=== PATIENT | female | born 2000 | race Caucasian/White ===

== ENCOUNTER → 2023-12-18 | Outpatient (CLI) | payer MEDICAID, SELFPAY ==
[2023-12-22 00:07] LABS: Chlamydia By Nucleic Acid AMP Negative (Negative); Gonococcus By Nucleic Acid AMP Negative (Negative)
[2023-12-22 15:10] LABS: HPV Reflexed? NOT INDICATED
== END | disposition home or self-care (01) ==
PROVIDERS: PCP Family Medicine; Referring Provider Registered Nurse; Visit Provider Registered Nurse
DX: Z12.4 Encounter for screening for malignant neoplasm of cervix (principal); O99.210 Obesity complicating pregnancy, unspecified trimester; Z3A.00 Weeks of gestation of pregnancy not specified
CPT/HCPCS: 87491; 87591; 88175; G0145

== ENCOUNTER → 2024-01-19 | Outpatient (CLI) | payer MEDICAID, SELFPAY ==
[2024-01-19 16:38] LABS: Absolute Lymphocyte Count 1.98 X10^3/uL (0.83-4.51); Absolute Neutrophil Count 7.7 X10^3/uL (2.0-7.7); Basophil# 0.04 X10^3/uL; Basophil% 0.4 % (0-1); Eosinophil# 0.09 X10^3/uL; Eosinophils% 0.8 % (0-5); Hematocrit 41.3 % (37-47); Hemoglobin 13.8 g/dL (12.0-15.0); Lymphocyte # 1.98 X10^3/ul (0.83-4.51); Lymphocyte % 18.7 % (19-41); Mean Corp Hgb Conc 33.4 g/dL (32-36); Mean Corpuscular Hgb 28.8 pg (27.0-32.0); Mean Platelet Vol. 10.7 fl (6.2-12.0); Monocyte# 0.76 X10^3/uL; Monocyte% 7.2 % (0-10); NRBC Flagged by Analyzer 0 % (0-5); Neutrophil # 7.69 X10^3/uL (2.7-7.7); Neutrophil % 72.4 % (47-70); Platelet Count 251 K/mm3 (150-450); RBC Distribution Width CV 12.3 % (11.6-14.6); RBC Distribution Width SD 38.7 fl (35.1-43.9); White Blood Count 10.6 K/mm3 (4.4-11.0)
[2024-01-19 17:07] LABS: Hemoglobin A1c 4.9 % (3.8-5.6)
[2024-01-19 17:10] LABS: ALB/GLOB Ratio 0.8 RATIO (0.9-2.4); AST(SGOT) 19 U/L (15-37); Alanine Aminotransfer ALT/SGPT 49 U/L (13-56); Albumin, Serum 3.2 g/dL (3.2-5.0); Alkaline Phosphatase 57 U/L (45-117); Anion Gap 9 (5-15); BUN 8 mg/dL (7-18); BUN/Creat Ratio 11.2 RATIO (10-20); Calcium,Total 9.5 mg/dL (8.5-10.1); Chloride 106 mmol/L (98-107); Creatinine, Serum 0.72 mg/dL (0.55-1.02); EST Glomerular Filtration Rate 105 mL/min (>60); Est Glom Filt Rate - Afr Amer 128 mL/min (>60); Globulin 3.9 g/dL (2.2-4.2); Glucose 91 mg/dL (74-106); Potassium 3.9 mmol/L (3.5-5.1); Protein, Total 7.1 g/dL (6.4-8.2); Sodium Level 140 mmol/L (136-145)
[2024-01-19 17:53] LABS: HIV - WCH Non-Reactive (Nonreactive); Hepatitis B Surface Antigen Non-Reactive (Nonreactive); Hepatitis C Antibody Non-Reactive (Nonreactive); Rubella IgG Reactive (Nonreactive); Syphilis Antibodies Non-reactive
== END | disposition home or self-care (01) ==
LOC: WOBLAB 16:05
PROVIDERS: Registered Nurse; PCP Family Medicine; Referring Provider Nurse Practitioner Women's Health; Visit Provider Nurse Practitioner Women's Health
DX: O99.210 Obesity complicating pregnancy, unspecified trimester (principal); E66.01 Morbid (severe) obesity due to excess calories; Z87.59 Personal history of other complications of pregnancy, childbirth and the puerperium; Z3A.00 Weeks of gestation of pregnancy not specified
CPT/HCPCS: 36415; 80053; 83036; 85025; 86703; 86762; 86780; 86803; 86850; 86900; 86901; 87340

== ENCOUNTER → 2024-04-15 | Outpatient (CLI) | payer MEDICAID, SELFPAY ==
[2024-04-15 17:16] LABS: Absolute Lymphocyte Count 2.07 X10^3/uL (0.83-4.51); Absolute Neutrophil Count 7.8 X10^3/uL (2.0-7.7); Basophil# 0.02 X10^3/uL; Basophil% 0.2 % (0-1); Eosinophils% 0.9 % (0-5); Hematocrit 37.3 % (37-47); Hemoglobin 12.7 g/dL (12.0-15.0); Lymphocyte # 2.07 X10^3/ul (0.83-4.51); Lymphocyte % 19.5 % (19-41); Mean Corpuscular Hgb 29.6 pg (27.0-32.0); Mean Corpuscular Volume 86.9 fL (81-99); Mean Platelet Vol. 10.8 fl (6.2-12.0); Monocyte% 5.7 % (0-10); NRBC Flagged by Analyzer 0 % (0-5); Neutrophil # 7.75 X10^3/uL (2.7-7.7); Neutrophil % 73.1 % (47-70); Platelet Count 286 K/mm3 (150-450); RBC Distribution Width CV 12.7 % (11.6-14.6); RBC Distribution Width SD 40.2 fl (35.1-43.9); Red Blood Count 4.29 M/mm3 (4.2-5.4); White Blood Count 10.6 K/mm3 (4.4-11.0)
[2024-04-15 17:18] LABS: Glucose Challenge Gest 1H 50g 159 mg/dL (70-140)
[2024-04-15 17:54] LABS: HIV - WCH Non-Reactive (Nonreactive); Syphilis Antibodies Non-reactive
== END | disposition home or self-care (01) ==
LOC: BWCLAB 15:10
PROVIDERS: PCP Family Medicine; Referring Provider Advanced Practice Midwife; Visit Provider Advanced Practice Midwife
DX: O09.92 Supervision of high risk pregnancy, unspecified, second trimester (principal); Z13.1 Encounter for screening for diabetes mellitus; Z3A.00 Weeks of gestation of pregnancy not specified
CPT/HCPCS: 36415; 82950; 85025; 86703; 86780

== ENCOUNTER → 2024-04-22 | Outpatient (CLI) | payer MEDICAID, SELFPAY ==
[2024-04-22 07:49] LABS: Bedside Glucose 91 mg/dL (74-106)
[2024-04-22 08:12] LABS: Glucose GTT-Gestation. Fasting 95 mg/dL (<105)
[2024-04-22 08:54] LABS: Glucose GTT-Gestational 1 Hr 169 mg/dL (<190)
[2024-04-22 09:43] LABS: Glucose GTT-Gestational 2 Hr 122 mg/dL (<165)
[2024-04-22 11:11] LABS: Glucose GTT-Gestational 3 Hr 160 L (<145)
== END | disposition home or self-care (01) ==
LOC: LAB 07:13
PROVIDERS: PCP Family Medicine; Referring Provider Advanced Practice Midwife; Visit Provider Advanced Practice Midwife
DX: Z13.1 Encounter for screening for diabetes mellitus (principal)

== ENCOUNTER 2024-05-11 18:55 | Outpatient (CLI) | payer MEDICAID, SELFPAY ==
[2024-05-11] VITALS (43 sets, daily range): BP systolic 107–152; BP diastolic 53–70; PULSE 127–155; RESP 16–18; TEMP 38.1–38.2; O2SAT 86–100; BMI 42.3
--- NOTE | 2024-05-11 20:16 | OB.TRI.HP_ITS ---
HPI - General HPI Narrative KATELYN WALTON, is a 24 y/o @ 31 weeks 0 days who presents to L&D with back pain and contractions. She comes in on a wheel chair and appears to be in pain. She is tearful. She states that the pains started early this am and became progressively worse. She denies dysuria, no headaches or visual changes or epigastric pain. She does complain of nausea without vomiting. No fevers or chills. No loss of fluid, vaginal bleeding, or decreased movement. Maternal Data Information OLIMPIA Calculator Estimated Delivery Date Method Current WG Current Estimate 07/13/24 Ultrasound #1 31w 0d Other Estimates 07/27/24 LMP (Uncertain) 29w 0d PFSH PFSH Medical History Hx of vaginal delivery FH: congenital heart problem FH: breast cancer in relative when >45 years old Seasonal allergies Home Medications ?Medication ?Instructions ?Recorded ?Last Taken ?Type ondansetron 4 mg disintegrating 4 mg PO Q6H PRN nausea and 12/18/23 Unknown Rx tablet vomiting #30 tabs blood sugar diagnostic (Blood #120 ea 04/22/24 Unknown Rx Glucose Test strips) blood-glucose meter #1 ea 04/22/24 Unknown Rx lancets #200 ea 04/22/24 Unknown Rx Allergy/AdvReac Type Severity Reaction Status Date / Time No Known Allergies Allergy Verified 05/11/24 19:39 Family History Grandmother Breast cancer Paternal Mother Hypertension Social History adopted: No household members: significant other and children number of children: 1 current occupational status: unemployed current occupation: [employer] current occupational exposures/hazards: No pets and animals: Yes pets and animals: dog(s) sexually active: No Smoking Status: Never smoker alcohol intake: current alcohol intake frequency: holidays/special occasions only details: Not while substance use type: does not use well-balanced diet: daily or most days caffeine: No eating out: rarely or never during the past year weight has: remained stable what type of physical activity do you participate in: none anil/restoration: Denominational seatbelt use: always do you feel safe at home: Yes additional social history: BF- Maxim Dominguez- Self Employed Presser First History 2 Elective abortions Hx Para 1 Spontaneous abortions Hx # Term Pregnancies Ectopic pregnancies Hx # Pregnancies Multiple births # of living children 1 Past Pregnancies Del. Date Name GA/Weeks Outcome Route Bth Weight Infant Gen Labor Lgth Anesthesia Del Locatn Provider FOB 09/08/19 Cheryl 38 live - full term 7# Female elizabethu sarthak Pan Delivery Date: 09/08/19 Last Updated by: Margaux Bacon IOL Gestational HTN Visit Details Expected Delivery Route/Plan Labor Preferences- CB/BF classes: [] labor support person: [] labor intervention preferences: [] pain management options preferred: [] cut cord/dad catch: [] : [] PP control planned: [] discussed possible routes of delivery and associated risks: [] special requests: [] Plans Covid status: [] Flu vaccine: declined Tdap vaccine: [] Rhogam: [] LARC form signed: [] Problem list reviewed and updated with the most current plan of care details and appropriate orders placed. Relevant counseling for the gestational age provided. Continue routine care and follow up unless otherwise noted in visit notes/problem list details OB Flowsheet Initial Weight: 224 lb Date -?-?-?-?-?-?-?-?-?-?-?-?- EGA Weight BP Urine Prot -?-?-?-?-?-?-?-?-?-?-?-?- Glucose FHR FuHt Pres Dilation -?-?-?-?-?-?-?-?-?-?-?-?- Effaced St Visit Note 12/18/23 -?-?-?-?-?-?-?-?-?-?-?-?- 10w 2d 224 lb 2 oz (+2 oz) 134/86 -?-?--?-?-?-?-?-?-?-?-?-?- 180 -?-?-?-?-?-?-?-?-?-?-?-?- LC- 27.6mm CRL n ot cw LMP. OLIMPIA 07/13/2024. declines genetics. CMP for hx of PEC. 01/19/24 -?-?-?-?--?-?-?-?-?-?-?-?- 14w 6d 223 lb 4 oz (-12 oz) 136/82 Negative -?-?-?-?-?-?-?-?-?-?-?-?- Negative 163 -?-?-?-?-?-?-?-?-?-?-?-?- MH-No VB. Nausea resolved. Live IUP on br US to confirm FHT. Labs today 02/17/24 -?-?-?-?-?-?-?-?-?-?-?-?- 19w 0d 224 lb (+0 oz) 139/80 Negative -?-?-?-?-?-?-?-?-?-?-?-?- Negative 160 -?-?-?-?-?-?-?-?-?-?-?-?- SM- no vb crampi ng 03/18/24 -?-?-?-?-?-?-?-?-?-?-?-?- 23w 2d 228 lb 2 oz (+4 lb 2 oz) 132/77 Negative -?-?-?-?-?-?-?-?-?-?-?-?- Negative 150 24 -?-?-?-?-?-?-?-?-?-?-?-?- KW- no vb/lof/ct x. good fm. anatomy US reviewed-discussed NIPT- declines today. 28 week labs discussed. 04/15/24 -?-?-?-?-?-?-?-?-?-?-?-?- 27w 2d 229 lb 4 oz (+5 lb 4 oz) 136/89 Negative -?-?-?-?-?-?-?-?-?-?-?-?- Negative 145 28 -?-?-?-?-?-?-?-?-?-?-?-?- KW- no vb/lof/ct x. good fm. doing 28 week labs today. 04/29/24 -?-?-?-?-?-?-?-?-?-?-?-?- 29w 2d 231 lb (+7 lb) 135/84 Negative -?-?-?-?-?-?-?-?-?-?-?-?- Negative 145 29 -?-?-?-?-?-?-?-?-?-?-?-?- LC- fasting 2/4 elevated. multiple pp elevated. nutrition reviewed- has appt next week. if still elevated will need to start medication management. LC- fasting 2/4 elevated. mu ltiple pp elevated. nutrition reviewed- has appt next week. if still elevated will need to start medication management. f/u in 1 week 05/05/24 -?-?-?-?-?-?-?-?-?-?-?-?- 30w 1d 227 lb 8 oz (+3 lb 8 oz) 129/78 Negative -?-?-?-?-?-?-?-?-?-?-?-?- Negative 151 32 -?-?-?-?-?-?-?-?-?-?-?-?- JV- only one fas ting out of range. patient to see dietitian tomorrow. ROS Constitutional Constitutional: Reports systems reviewed and no addt'l complaints, except as documented Cardiovascular Cardiovascular: Denies chest pain, dyspnea or lightheadedness Gastrointestinal Gastrointestinal: Reports nausea; Denies bloating, constipation, diarrhea or vomiting Genitourinary Genitourinary: Reports other Details: Denies vaginal odor, vaginal bleeding, or vaginal discharge ; Denies difficulty urinating or flank pain Physical Exam Const alert, oriented x3 and no apparent distress General Appearance: cooperative and anxious HEENT normocephalic Resp normal respiratory effort and normal air movement Cardio Cardio Narrative: normal rhythm, tachycardic 150's no CVA tenderness Manual OB Exam: presentation cephalic, dilated 2, effaced 60 and station - 3 Extremity normal to inspection General Extremity: edema bilateral (trace ) NST FHR Rate Baby A Baseline: 150 Variability:: Moderate Accelerations:: 15 x 15 and 10 x 10 Decelerations:: None NST Reactive:: Yes FHR Category:: Category I Assessment & Plan (1) Threatened labor: (2) Gestational diabetes mellitus (GDM) affecting , antepartum: COMMENT: nutrition consult and testing 4 x daily (3) Abnormal glucose affecting : COMMENT: needs 3 hour (4) cardiac echogenic focus: COMMENT: declined NIPT (5) Obesity affecting : COMMENT: BMI 43.5, HgA1c with nob. encouraged healthy weight gain (6) History of pre-eclampsia in prior , currently : COMMENT: ASA after 10 weeks. baseline labs with nob (7) Supervision of high-risk : QUALIFIERS: Trimester: second trimester Qualified Code(s): O09.92 - Supervision of high risk , unspecified, second trimester COMMENT: PRR , OLIMPIA 07/20/24, PC Cheryl, BF Maxim (8) : QUALIFIERS: Weeks of gestation: 30 weeks Qualified Code(s): Z3A.30 - 30 weeks gestation of COMMENT: discussed ntd, genetic & carrier testing-declines (9) FH: congenital heart problem: COMMENT: Brother-hole in heart no intervention, start with anatomy scan and consider echo PLAN: Plan discussed plan with MFM: ROM plus + FFN collected upon arrival collect GBS start mag 6 gram bolus followed by 1 gram/hr for neuro protection. start pcn Give celestone 12.5 IM Give procardia 10 mg PO q 3 minutes x 3, hold for bp that is less than 90/60 ordering pre-e labs (CBC, CMP, LDH, urine prot:cr) Ordering urine culture flu+ covid+ rsv swab ordered. plan to transport to [facility] [place]. Charges/Coding Multi Select Codes Visit Charges Office Visit/Consults: 37188 OV L3 Est 20min Urinary/Genital Urinary/Genital CPT Codes: 44896-25 non-stress test Interp
[2024-05-11] MEDS: Ondansetron 4 MG/2 ML Vial IV (20:42)
[2024-05-11 20:46] LABS: ROM Internal Control Test YES-OK TO RESULT pt. (Internal QC); ROM Patient Test Negative (Negative); Record Kit Lot#, ROM+ K2451
[2024-05-11 20:46] LABS: Hemoglobin 13.1 g/dL (12.0-15.0); Mean Corp Hgb Conc 34.5 g/dL (32-36); Mean Corpuscular Hgb 29.8 pg (27.0-32.0); Mean Corpuscular Volume 86.4 fL (81-99); Platelet Count 225 K/mm3 (150-450); RBC Distribution Width CV 12.6 % (11.6-14.6); RBC Distribution Width SD 39.7 fl (35.1-43.9); White Blood Count 9.3 K/mm3 (4.4-11.0)
[2024-05-11] MEDS: Magnesium Sulfate 4gm/100mL 2 GM/50 ML IV.SOLN. IV (20:48)
[2024-05-11] MEDS: Lactated Ringers 500 ML 999 ML IV (20:48)
[2024-05-11] MEDS: Betamethasone/Betamethasone 30 MG/5 ML Vial 12 MG IM (20:49)
[2024-05-11] MEDS: Penicillin G Pot 5,000,000 UNITS in 0.9% Normal Saline (100mL MB+) 100 ML 150 UNITS IV (20:51)
[2024-05-11 20:54] LABS: Color, Urine Yellow (Yellow); Glucose, Dipstick Normal (Normal); Leukocyte Esterase-Dipstick 25 /ul (Negative); Nitrite-Dipstick Negative (Negative); Occult Blood-Urine 25 /ul (Negative); Protein-Dipstick 15 mg/dl (Negative); Urine Bilirubin Dipstick Negative (Negative); Urine Clarity Clear (Clear); Urine Urobilinogen Normal (Normal); Urine pH 6.5 (5.0 - 8.0)
[2024-05-11 20:57] LABS: Ketone-Dipstick 150 mg/dl (Negative)
[2024-05-11 20:58] LABS: Partial Thromboplast Time 27.2 Seconds (24.1-36.2); Prothrombin Time (Protime)PT. 13.3 SECONDS (11.7-14.9)
[2024-05-11 20:59] LABS: Fibrinogen 621 mg/dl (203-444)
[2024-05-11 21:01] LABS: AST(SGOT) 30 U/L (15-37); Alanine Aminotransfer ALT/SGPT 57 U/L (13-56); EST Glomerular Filtration Rate 129 mL/min (>60); Est Glom Filt Rate - Afr Amer 156 mL/min (>60); Estimated Creatinine Clearance 156.86 ml/min; Protein, Urine (Random) 19.5 mg/dL (<11.9); Protein:Creat Ratio 179 mg/g CRE (0-200); Uric Acid 4.7 mg/dL (2.6-6.0)
[2024-05-11 21:02] LABS: Fetal Fibronectin Negative; Record Kit Lot#, fFN D4035
[2024-05-11 21:04] LABS: LDH 144 U/L (84-246)
[2024-05-11] MEDS: Magnesium Sulfate 4gm/100mL 4 GM/100 ML IV.SOLN. IV (21:05)
[2024-05-11] MEDS: Magnesium Sulfate 20 GM/500 ML BAG IV (21:20)
== END 2024-05-11 22:15 | disposition home or self-care (01) ==
LOC: WPOUT 19:05 → WP 19:05
PROVIDERS: PCP Family Medicine; Referring Provider Obstetrics & Gynecology; Visit Provider Obstetrics & Gynecology
DX: O47.03 False labor before 37 completed weeks of gestation, third trimester (principal); Z3A.31 31 weeks gestation of pregnancy; O24.419 Gestational diabetes mellitus in pregnancy, unspecified control; O99.213 Obesity complicating pregnancy, third trimester
CPT/HCPCS: 96365; 96375; 96376; 36415; 59025; 59050; 81002; 82565; 82570; 82731; 83615; 84112; 84156; 84450; 84460; 84550; 85027; 85384; 85610; 85730; 87631; 96372; 99221; G0378; J0702; J2405

== ENCOUNTER → 2024-05-17 | Outpatient (CLI) | payer MEDICAID, SELFPAY ==
--- NOTE | 2024-05-17 09:26 | US_ITS ---
EXAM: US Abdomen Limited, Right Upper Quadrant CLINICAL INDICATION: TECHNIQUE: Real-time ultrasound of the right upper quadrant with image documentation. COMPARISON: No relevant prior studies available. FINDINGS: LIVER: Hepatopetal blood flow in main portal vein. Liver measures 14.67 mm. No intrahepatic bile duct dilation. GALLBLADDER: Unremarkable. No gallstones. COMMON BILE DUCT: Unremarkable as visualized. No stones. No dilation. PANCREAS: Unremarkable as visualized. RIGHT KIDNEY: Unremarkable. No stones. No hydronephrosis. The right kidney measures 10.3 x 4.8 x 5.2 cm. OTHER FINDINGS: Goblet sludge. US/Abdomen Limited IMPRESSION: Gallbladder sludge without acute cholecystitis. Reading [facility]
[2024-05-17 10:42] LABS: Absolute Lymphocyte Count 2.73 X10^3/uL (0.83-4.51); Basophil# 0.01 X10^3/uL; Basophil% 0.1 % (0-1); Eosinophil# 0.04 X10^3/uL; Eosinophils% 0.5 % (0-5); Hematocrit 37.2 % (37-47); Hemoglobin 12.5 g/dL (12.0-15.0); Lymphocyte # 2.73 X10^3/ul (0.83-4.51); Lymphocyte % 37.2 % (19-41); Mean Corp Hgb Conc 33.6 g/dL (32-36); Mean Corpuscular Hgb 29.1 pg (27.0-32.0); Mean Corpuscular Volume 86.7 fL (81-99); Mean Platelet Vol. 10.8 fl (6.2-12.0); Monocyte# 0.57 X10^3/uL; Monocyte% 7.8 % (0-10); NRBC Flagged by Analyzer 0 % (0-5); Neutrophil # 3.96 X10^3/uL (2.7-7.7); Platelet Count 225 K/mm3 (150-450); RBC Distribution Width CV 12.7 % (11.6-14.6); RBC Distribution Width SD 39.9 fl (35.1-43.9); Red Blood Count 4.29 M/mm3 (4.2-5.4); White Blood Count 7.3 K/mm3 (4.4-11.0)
[2024-05-17 11:00] LABS: ALB/GLOB Ratio 0.7 RATIO (0.9-2.4); AST(SGOT) 52 U/L (15-37); Alanine Aminotransfer ALT/SGPT 116 U/L (13-56); Albumin, Serum 2.7 g/dL (3.2-5.0); Alkaline Phosphatase 70 U/L (45-117); Anion Gap 9 (5-15); BUN 8 mg/dL (7-18); BUN/Creat Ratio 17.2 RATIO (10-20); Calcium,Total 8.7 mg/dL (8.5-10.1); Chloride 107 mmol/L (98-107); Creatinine, Serum 0.46 mg/dL (0.55-1.02); EST Glomerular Filtration Rate 174 mL/min (>60); Est Glom Filt Rate - Afr Amer 210 mL/min (>60); Glucose 79 mg/dL (74-106); Potassium 3.7 mmol/L (3.5-5.1); Protein, Total 6.7 g/dL (6.4-8.2); Sodium Level 137 mmol/L (136-145)
== END | disposition home or self-care (01) ==
LOC: US 09:22
PROVIDERS: PCP Family Medicine; Referring Provider Obstetrics & Gynecology; Visit Provider Obstetrics & Gynecology
DX: O09.299 Supervision of pregnancy with other poor reproductive or obstetric history, unspecified trimester (principal); R74.8 Abnormal levels of other serum enzymes; Z3A.00 Weeks of gestation of pregnancy not specified
CPT/HCPCS: 36415; 76705; 80053; 85025

== ENCOUNTER → 2024-05-26 | Outpatient (CLI) | payer MEDICAID, SELFPAY ==
[2024-05-26 17:25] LABS: ALB/GLOB Ratio 0.7 RATIO (0.9-2.4); AST(SGOT) 18 U/L (15-37); Alanine Aminotransfer ALT/SGPT 51 U/L (13-56); Albumin, Serum 2.8 g/dL (3.2-5.0); Alkaline Phosphatase 78 U/L (45-117); Anion Gap 7 (5-15); BUN 12 mg/dL (7-18); BUN/Creat Ratio 22.9 RATIO (10-20); Calcium,Total 9.5 mg/dL (8.5-10.1); Chloride 108 mmol/L (98-107); Creatinine, Serum 0.52 mg/dL (0.55-1.02); EST Glomerular Filtration Rate 151 mL/min (>60); Est Glom Filt Rate - Afr Amer 183 mL/min (>60); Glucose 114 mg/dL (74-106); Potassium 3.7 mmol/L (3.5-5.1); Protein, Total 6.8 g/dL (6.4-8.2); Sodium Level 138 mmol/L (136-145)
== END | disposition home or self-care (01) ==
LOC: BWCLAB 15:34
PROVIDERS: Obstetrics & Gynecology; PCP Family Medicine; Referring Provider Nurse Practitioner Women's Health; Visit Provider Nurse Practitioner Women's Health
DX: R79.89 Other specified abnormal findings of blood chemistry (principal)
CPT/HCPCS: 36415; 80053

== ENCOUNTER → 2024-06-10 | Outpatient (CLI) | payer MEDICAID, SELFPAY ==
[2024-06-10 17:03] LABS: ROM Internal Control Test YES-OK TO RESULT pt. (Internal QC); ROM Patient Test Negative (Negative); Record Kit Lot#, ROM+ K2871
== END | disposition home or self-care (01) ==
PROVIDERS: PCP Family Medicine; Visit Provider Advanced Practice Midwife
DX: N89.8 Other specified noninflammatory disorders of vagina (principal)
CPT/HCPCS: 84112

== ENCOUNTER 2024-06-11 02:24 | Outpatient (CLI) | payer MEDICAID, SELFPAY ==
[2024-06-11 02:48] VITALS: BMI 42.5
[2024-06-11 02:52] VITALS: RESP 16; TEMP 36.4
[2024-06-11 02:54] VITALS: BP 140/77; PULSE 86; O2SAT 97
[2024-06-11 03:01] VITALS: BP 127/71; PULSE 89
[2024-06-11 03:31] LABS: ROM Internal Control Test YES-OK TO RESULT pt. (Internal QC); ROM Patient Test Negative (Negative); Record Kit Lot#, ROM+ K2871
--- NOTE | 2024-06-11 08:27 | OB.TRI.HP_ITS ---
HPI - General HPI Narrative KATELYN WALTON, is a 24 F who presents at 35.3 for questionable leaking of fluid. good fm, no vb/ctx Maternal Data Information OLIMPIA Calculator Estimated Delivery Date Method Current WG Current Estimate 07/13/24 Ultrasound #1 35w 3d Other Estimates 07/27/24 LMP (Uncertain) 33w 3d PFSH PFSH Medical History Hx of vaginal delivery FH: congenital heart problem FH: breast cancer in relative when >45 years old Seasonal allergies Home Medications ?Medication ?Instructions ?Recorded ?Last Taken ?Type ondansetron 4 mg disintegrating 4 mg PO Q6H PRN nausea and 12/18/23 Unknown Rx tablet vomiting #30 tabs blood sugar diagnostic (Blood #120 ea 04/22/24 Unknown Rx Glucose Test strips) blood-glucose meter #1 ea 04/22/24 Unknown Rx lancets #200 ea 04/22/24 Unknown Rx Allergy/AdvReac Type Severity Reaction Status Date / Time No Known Allergies Allergy Verified 06/11/24 02:46 Family History Grandmother Breast cancer Paternal Mother Hypertension Social History adopted: No household members: significant other and children number of children: 1 current occupational status: unemployed current occupation: [employer] current occupational exposures/hazards: No pets and animals: Yes pets and animals: dog(s) sexually active: No Smoking Status: Never smoker alcohol intake: current alcohol intake frequency: holidays/special occasions only details: Not while substance use type: does not use well-balanced diet: daily or most days caffeine: No eating out: rarely or never during the past year weight has: remained stable what type of physical activity do you participate in: none anil/worship: Congregation seatbelt use: always do you feel safe at home: Yes additional social history: BF- Maxim Dominguez- Self Employed Technical Program Manager History 2 Elective abortions Hx Para 1 Spontaneous abortions Hx # Term Pregnancies Ectopic pregnancies Hx # Pregnancies Multiple births # of living children 1 Past Pregnancies Del. Date Name GA/Weeks Outcome Route Bth Weight Infant Gen Labor Lgth Anesthesia Del Locatn Provider FOB 09/08/19 Cheryl 38 live - full term 7# Female elizabethu sarthak Pan Delivery Date: 09/08/19 Last Updated by: Margaux Bacon IOL Gestational HTN Visit Details Expected Delivery Route/Plan Labor Preferences- CB/BF classes: [] labor support person: Maxim labor intervention preferences: [] pain management options preferred: epidural cut cord/dad catch: cord : yes PP control planned: discussed discussed possible routes of delivery and associated risks: [] special requests: [] Plans Covid status: [] Flu vaccine: declined Tdap vaccine: given Rhogam: na LARC form signed: yes Problem list reviewed and updated with the most current plan of care details and appropriate orders placed. Relevant counseling for the gestational age provided. Continue routine care and follow up unless otherwise noted in visit notes/problem list details OB Flowsheet Initial Weight: 224 lb Date -?-?-?-?-?-?-?-?-?-?-?-?- EGA Weight BP Urine Prot -?-?-?-?-?-?-?-?-?-?-?-?- Glucose FHR FuHt Pres Dilation -?-?-?-?-?-?-?-?-?-?-?-?- Effaced St Visit Note 12/18/23 -?-?-?-?-?-?-?-?-?-?-?-?- 10w 2d 224 lb 2 oz (+2 oz) 134/86 -?-?-?-?-?-?-?-?-?-?-?-?- 180 -?-?-?-?-?-?-?-?-?-?-?-?- LC- 27.6mm CRL n ot cw LMP. OLIMPIA 07/13/2024. declines genetics. CMP for hx of PEC. 01/19/24 -?-?-?-?-?-?-?-?-?-?-?-?- 14w 6d 223 lb 4 oz (-12 oz) 136/82 Negative -?-?-?-?-?--?-?-?-?-?-?-?- Negative 163 -?-?-?-?-?-?-?-?-?-?-?-?- MH-No VB. Nausea resolved. Live IUP on br US to confirm FHT. Labs today 02/17/24 -?-?-?-?-?-?--?-?-?-?-?-?- 19w 0d 224 lb (+0 oz) 139/80 Negative -?-?-?-?-?-?-?-?-?-?-?-?- Negative 160 -?-?-?-?-?-?-?-?-?-?-?-?- SM- no vb crampi ng 03/18/24 -?-?-?-?-?-?-?-?-?-?-?-?- 23w 2d 228 lb 2 oz (+4 lb 2 oz) 132/77 Negative -?-?-?-?-?-?-?-?-?-?-?-?- Negative 150 24 -?-?-?-?-?-?-?-?-?-?-?-?- KW- no vb/lof/ct x. good fm. anatomy US reviewed-discussed NIPT- declines today. 28 week labs discussed. 04/15/24 -?-?-?-?-?-?-?-?-?-?-?-?- 27w 2d 229 lb 4 oz (+5 lb 4 oz) 136/89 Negative -?-?-?-?-?-?-?-?-?-?-?-?- Negative 145 28 -?--?-?-?-?-?-?-?-?-?-?-?- KW- no vb/lof/ct x. good fm. doing 28 week labs today. 04/29/24 -?-?-?-?-?-?-?-?-?-?-?-?- 29w 2d 231 lb (+7 lb) 135/84 Negative -?-?-?-?-?-?-?-?-?-?-?-?- Negative 145 29 -?-?-?-?-?-?-?-?-?-?-?-?- LC- fasting 2/4 elevated. multiple pp elevated. nutrition reviewed- has appt next week. if still elevated will need to start medication management. LC- fasting 2/4 elevated. mu ltiple pp elevated. nutrition reviewed- has appt next week. if still elevated will need to start medication management. f/u in 1 week 05/05/24 -?-?-?-?-?-?-?-?-?-?-?-?- 30w 1d 227 lb 8 oz (+3 lb 8 oz) 129/78 Negative -?-?-?-?-?-?-?-?-?-?--?-?- Negative 151 32 -?-?-?-?-?-?-?-?-?-?-?-?- JV- only one fas ting out of range. patient to see dietitian tomorrow. 05/26/24 -?-?-?-?-?-?-?-?-?--?-?-?- 33w 1d 228 lb 8 oz (+4 lb 8 oz) 124/80 Negative -?-?-?-?-?-?-?-?-?-?-?-?- Negative 154 34 -?-?-?-?-?-?-?-?-?-?-?-?- MH-No VB, LOF. G ood FM. Larc, tdap, CMP 06/10/24 -?-?-?-?-?-?-?-?-?-?-?-?- 35w 2d 226 lb 8 oz (+2 lb 8 oz) 127/86 Trace -?-?-?-?-?-?-?-?-?-?-?-?- Negative 150 35 -?-?-?-?-?-?-?-?-?-?-?-?- KW- no vb/lof/ct x. good fm. Concerns with increased vaginal discharge. ROM done and agrees to monitor for results NST FHR Rate Baby A Baseline: 130 Variability:: Moderate Accelerations:: 15 x 15 Decelerations:: None NST Reactive:: Yes FHR Category:: Category I Uterine Activity:: x2 in 54 minutes Assessment & Plan (1) No leakage of amniotic fluid into vagina: COMMENT: ROM plus negative. cat 1 tracing/ dc home PLAN: Plan Patient presents for triage evaluation secondary to questionable leaking of fluid. rom negative FHT: Moderate variability reactive no decelerations category I tracing [place]: Contractions Assessment and plan: Reactive NST, reassuring maternal and status patient discharged to home to follow-up in office/prn. See problem list details for additional plan information. Charges/Coding Multi Select Codes Urinary/Genital Urinary/Genital CPT Codes: 01242-67 non-stress test Interp
== END 2024-06-11 03:45 | disposition home or self-care (01) ==
LOC: WPOUT 02:36 → WP 02:37
PROVIDERS: PCP Family Medicine; Referring Provider Registered Nurse; Visit Provider Registered Nurse
DX: Z03.71 Encounter for suspected problem with amniotic cavity and membrane ruled out (principal); Z3A.35 35 weeks gestation of pregnancy
CPT/HCPCS: 59025; 59050; 84112; 99221; G0378

== ENCOUNTER 2024-06-21 17:20 | Inpatient (IN) | payer MEDICAID, SELFPAY ==
[2024-06-21] VITALS (34 sets, daily range): BP systolic 92–181; BP diastolic 51–101; PULSE 94–129; RESP 14–18; TEMP 36.6–37.2; O2SAT 90–99; BMI 42.7
--- NOTE | 2024-06-21 17:37 | PCM.HP.STD ---
HPI - General General Date of Admission: 06/21/24 HPI Narrative KATELYN WALTON, is a 24 y/o @ 36 weeks 6 days who presents to L&D for leaking fluid. She states that it started at 2 am on Thursday night (at 2 am it will be 48 hours). The nurse attempted to collect a ROM plus but the fluid was blood tinged and a large gush came out. The patient denies fevers or chills. [facility] Medical History Hx of vaginal delivery FH: congenital heart problem FH: breast cancer in relative when >45 years old Seasonal allergies Home Medications ?Medication ?Instructions ?Recorded ?Last Taken ?Type ondansetron 4 mg disintegrating 4 mg PO Q6H PRN nausea and 12/18/23 Unknown Rx tablet vomiting #30 tabs blood sugar diagnostic (Blood #120 ea 04/22/24 Unknown Rx Glucose Test strips) blood-glucose meter #1 ea 04/22/24 Unknown Rx lancets #200 04/22/24 Unknown Rx loratadine-pseudoephedrine ER 10 1 tab PO DAILY 06/21/24 06/21/24 History mg-240 mg tablet,extended [id number] (Allergy and Congestion Relief) Allergy/AdvReac Type Severity Reaction Status Date / Time No Known Allergies Allergy Verified 06/21/24 17:09 Family History Grandmother Breast cancer Paternal Mother Hypertension Social History adopted: No household members: significant other and children number of children: 1 current occupational status: unemployed current occupation: [employer] current occupational exposures/hazards: No pets and animals: Yes pets and animals: dog(s) sexually active: No Smoking Status: Never smoker alcohol intake: current alcohol intake frequency: holidays/special occasions only details: Not while substance use type: does not use well-balanced diet: daily or most days caffeine: No eating out: rarely or never during the past year weight has: remained stable what type of physical activity do you participate in: none anil/voodoo: Amish seatbelt use: always do you feel safe at home: Yes additional social history: BF- Maxim Dominguez- Self Employed Micro Computer Specialist ROS Constitutional Constitutional: Denies change in weight, fatigue, fever(s), headache(s), poor appetite or weakness Eyes Eyes: Denies blurry vision, change in vision, seeing flashes or spots in vision ENT HEENT: Denies dizziness, headache(s), loss taste/smell or sore throat Cardiovascular Cardiovascular: Denies chest pain, dizziness, dyspnea, irregular heart rhythm, leg edema, palpitations, rapid heart rate or vomiting Respiratory/Chest Respiratory/Chest: Denies chest tightness, cough, dyspnea or breast pain Gastrointestinal Gastrointestinal: Denies abdominal pain, anorexia, constipation, cramping, diarrhea, hemorrhoids, vomiting or weight changes Genitourinary Genitourinary: Denies dysuria, flank pain, genital lesions, genital pain, urinary frequency or urinary urgency Musculoskeletal Musculoskeletal: Denies back pain, difficulty walking, joint pain, limited range of motion, muscle cramps or numbness Integumentary Integumentary: Denies lesions or unusual bruising Neurologic Neurologic: Denies abnormal movements, abnormal speech, dizziness, numbness, seizure-like activity or syncope Psychiatric Psychiatric: Denies anxiety, behavioral changes, change in appetite, change in libido, cognitive impairment, confusion, depression, difficulty concentrating, hallucinations or suicidal thoughts Endocrine Endocrinology: Denies excessive sweating, polydipsia or polyuria Hematologic/Lymphatic Hematologic/Lymphatic: Denies easy bleeding, easy bruising or lymphadenopathy Allergic/Immunologic Allergic/Immunologic: Denies itchy eyes, lip swelling, seasonal rhinorrhea, rhinitis, throat swelling, tongue swelling, eczemia, wheezing or asthma Vital Signs Vital Signs Vital Signs: 06/21/24 17:03 06/21/24 17:03 06/21/24 17:03 Temperature Pulse Rate 122 H Respiratory Rate 16 Blood Pressure 131/89 H BP Systolic 131 BP Diastolic 89 Pulse Ox 06/21/24 17:03 06/21/24 17:04 06/21/24 17:04 Temperature 98.9 F Pulse Rate 129 H Respiratory Rate Blood Pressure BP Systolic BP Diastolic Pulse Ox 98 Weight Weight: 226 lb 4 oz Body Mass Index (BMI) 42.7 Physical Exam Const alert, oriented x3, no apparent distress and healthy appearing General Appearance: cooperative; Negative for anxious HEENT normocephalic Face and Sinus: normal facial exam Eyes EOMs intact bilaterally and no scleral icterus General Eye: normal appearance of both eyes Neck full ROM and supple Lymph Lymphatic: no lymphadenopathy noted Chest Chest: abnormal inspection of the chest Resp normal respiratory effort Effort and Inspection: able to speak in complete sentences Cardio regular rate GI soft to palpation and non-tender Inspection: gravid Palpation: soft; Negative for tender external exam normal Amniotic Fluid: ROM+plus Back/Spine no CVA tenderness Extremity normal to inspection, full ROM and no clubbing, cyanosis or edema General Extremity: Negative for calf tenderness or edema Skin Lesions: no lesions Rashes: no rashes Psych mental status grossly normal Assessment & Plan Assessment/Plan (1) Gestational diabetes mellitus (GDM) affecting , antepartum: (2) Abnormal glucose affecting : (3) cardiac echogenic focus: (4) Obesity affecting : QUALIFIERS: Trimester: third trimester Obesity type affecting : unspecified obesity Qualified Code(s): O99.213 - Obesity complicating , third trimester (5) History of pre-eclampsia in prior , currently : (6) Supervision of high-risk : QUALIFIERS: Trimester: third trimester Qualified Code(s): O09.93 - Supervision of high risk , unspecified, third trimester (7) : QUALIFIERS: Weeks of gestation: 35 weeks Qualified Code(s): Z3A.35 - 35 weeks gestation of (8) FH: congenital heart problem: (9) PROM (premature rupture of membranes): PLAN: Plan Patient presents IOL, plan management for with pitocin/AROM. Pain management: plans epidural. GBS negative, starting antibiotics for prolonged rupture of membranes Management of any complications: GDM I have reviewed the [facility] and made any clinically relevant updates.
[2024-06-21] MEDS: Lactated Ringers 1,000 ML 999 ML IV (17:40)
[2024-06-21 17:58] LABS: Absolute Lymphocyte Count 1.84 X10^3/uL (0.83-4.51); Absolute Neutrophil Count 5.3 X10^3/uL (2.0-7.7); Basophil# 0.03 X10^3/uL; Basophil% 0.4 % (0-1); Eosinophil# 0.12 X10^3/uL; Eosinophils% 1.5 % (0-5); Hematocrit 35.8 % (37-47); Hemoglobin 12.4 g/dL (12.0-15.0); Lymphocyte # 1.84 X10^3/ul (0.83-4.51); Lymphocyte % 23.6 % (19-41); Mean Corp Hgb Conc 34.6 g/dL (32-36); Mean Corpuscular Hgb 29.6 pg (27.0-32.0); Mean Corpuscular Volume 85.4 fL (81-99); Mean Platelet Vol. 11.1 fl (6.2-12.0); Monocyte# 0.51 X10^3/uL; Monocyte% 6.5 % (0-10); NRBC Flagged by Analyzer 0 % (0-5); Neutrophil # 5.27 X10^3/uL (2.7-7.7); Neutrophil % 67.7 % (47-70); Platelet Count 252 K/mm3 (150-450); RBC Distribution Width SD 39.6 fl (35.1-43.9); Red Blood Count 4.19 M/mm3 (4.2-5.4); White Blood Count 7.8 K/mm3 (4.4-11.0)
[2024-06-21 18:26] LABS: Syphilis Antibodies Nonreactive (Nonreactive)
[2024-06-21 18:32] LABS: Bedside Glucose 76 mg/dL (74-106)
[2024-06-21] MEDS: Oxytocin 15 Units/NS 250ml 15 UNITS/250 ML IV.SOLN 2 UNITS IV (18:49)
[2024-06-21 19:23] LABS: Protein, Urine (Random) 8.7 mg/dL (0.0-12.0); Protein:Creat Ratio 106 mg/g CRE (0-200)
[2024-06-21 19:31] LABS: AST(SGOT) 16 U/L (<=31); Alanine Aminotransfer ALT/SGPT 16 U/L (<=34); Creatinine, Serum 0.58 mg/dL (0.70-1.20); EST Glomerular Filtration Rate 129 (>60); Estimated Creatinine Clearance 163.22 ml/min (50-250)
[2024-06-21] MEDS: Penicillin G Pot 5,000,000 UNITS in 0.9% Normal Saline (100mL MB+) 100 ML 150 UNITS IV (19:33)
[2024-06-21 19:39] LABS: Group B Strep DNA By PCR Negative (Negative)
[2024-06-21 19:47] LABS: Uric Acid 5.3 mg/dL (2.6-6.0)
[2024-06-21 19:56] LABS: Bedside Glucose 70 mg/dL (74-106)
[2024-06-21] MEDS: Lactated Ringers 1,000 ML 200 ML IV ×2 (21:31→23:43)
[2024-06-21] MEDS: fentaNYL-bupivacaine (epidural) 100 ML BAG EPIDURAL (23:44)
[2024-06-22] VITALS (102 sets, daily range): BP systolic 119–148; BP diastolic 54–85; PULSE 68–115; RESP 14–18; TEMP 36.3–36.8; O2SAT 90–100
[2024-06-22 00:02] LABS: Bedside Glucose 75 mg/dL (74-106)
[2024-06-22] MEDS: Lactated Ringers 1,000 ML 200 ML IV (03:47)
[2024-06-22] MEDS: fentaNYL-bupivacaine (epidural) 100 ML BAG EPIDURAL (03:47)
[2024-06-22 04:53] LABS: Bedside Glucose 82 mg/dL (74-106)
--- NOTE | 2024-06-22 05:24 | EX.PCM.OBVAG ---
Assessment & Plan (1) PROM (premature rupture of membranes): (2) Elevated LFTs: COMMENT: Rpt CMP pending (3) Gestational diabetes mellitus (GDM) affecting , antepartum: COMMENT: nutrition consult and testing 4 x daily Growth US at 36 wk (4) Abnormal glucose affecting : COMMENT: needs 3 hour (5) cardiac echogenic focus: COMMENT: declined NIPT (6) Obesity affecting : QUALIFIERS: Trimester: third trimester Obesity type affecting : unspecified obesity Qualified Code(s): O99.213 - Obesity complicating , third trimester COMMENT: BMI 43.5, HgA1c with nob. encouraged healthy weight gain (7) History of pre-eclampsia in prior , currently : COMMENT: ASA after 10 weeks. baseline labs with nob (8) Supervision of high-risk : QUALIFIERS: Trimester: third trimester Qualified Code(s): O09.93 - Supervision of high risk , unspecified, third trimester COMMENT: PRR , OLIMPIA 07/20/24, TIERNEY Garcia (9) : QUALIFIERS: Weeks of gestation: 35 weeks Qualified Code(s): Z3A.35 - 35 weeks gestation of COMMENT: discussed ntd, genetic & carrier testing-declines Maternal Data Information OLIMPIA Calculator Estimated Delivery Date Method Current WG Current Estimate 07/13/24 Ultrasound #1 37w 0d Other Estimates 07/27/24 LMP (Uncertain) 35w 0d Final OLIMPIA: 07/13/24 Final OLIMPIA Source: [place] <20 weeks Gestational age: 37 weeks 0 days Vaginal Delivery Maternal Presentation Maternal Presentation: Spontaneous Rupture of Membranes Type of Induction: Pitocin Vaginal Delivery Information Procedure Performed: Spontaneous Vaginal Delivery Surgeon/Practitioner: Megan Peres Date of Procedure: 06/22/24 Pre-Procedure Diagnosis: @ 37 weeks, PROM Post-Procedure Diagnosis: @ 37 weeks, PROM Type of anesthesia: Epidural Estimated Blood Loss: 100cc Time of Delivery: 05:18 Findings Description of procedure: Patient began pushing and delivered the head in the SHAN presentation. The head was delivered atraumatically and a loose nuchal cord ?1 was identified and easily reduced over the 's head. The anterior and posterior shoulders delivered without complication followed by the rest of the infant and the infant was placed on the maternal abdomen. Delayed cord clamping was employed for approximately 60 seconds. Cord was clamped and cut and gentle traction was applied to the cord and the placenta delivered spontaneously immediately following it was noted to be intact with three-vessel cord. The perineum and vagina were inspected and noted to have no laceration. EBL was 100 cc. Patient and tolerated delivery well. Procedure findings: viable male scores 9/9 Marrufo Presentation: Vertex Amniotic Membrane Rupture Type: Spontaneous Amniotic Fluid Description: Clear Placental Delivery Description: Spontaneous Placenta Disposition: [facility] Specimen collected: No Cord Vessel Description: 3 Vessels Cord Entanglement: Around neck x 1, tight Nuchal Cord Compression: Without compression Infant A Gender: Male (1 minute): 9 (5 minute): 9 Delayed Cord Clamping: Yes Paralegal Specialist corporate technical recruiter: No Post Vaginal Deli Medications given after delivery: IV Pitocin Episiotomy Description: None Laceration: None Complication Complications: No Multi Select Codes Urinary/Genital Urinary/Genital CPT Codes: 06029 Vaginal Delivery+ PP Care([facility])
--- NOTE | 2024-06-22 05:28 | DCINST_ITS ---
Discharge Instructions Diet Discharge Diet: No restrictions DC O2, CPAP, BIPAP needs Home O2 Discharge instructions: No Dressing / Incision Discharge Activity: Return to Normal Activity, May Not Drive (while taking narcotic pain medications.) and May Shower May resume sexual activity in: 4-6 weeks Dressing / Incision Call your doctor if your incision/area has: Continuous Slow Oozing, Sudden Increased Bleeding, Increased Pain/ Swelling, Increased Redness and Foul Smelling Discharge Follow Up Care Please Follow Up With: Megan Peres DO When: Call [phone] to make an appointment with your doctor in 6 weeks. If you had elevated blood pressure or 4th degree laceration, you will need to be seen in 2 weeks. Test Results: Test results from this visit will be discussed in further detail at your follow- up appointment, if applicable. Discharge Plan Admission Admit Date/Time: 06/21/24 17:20 Attending Provider: Megan Peres Primary Care Provider: KORY ABBOTT Discharge Orders/Prescriptions Prescriptions: No Action ondansetron 4 mg tablet,disintegrating 4 mg PO Q6H PRN (Reason: nausea and vomiting) Qty: 30 4RF Allergy and Congestion Relief 10-240 mg tablet extended release 24 hr 1 tab PO DAILY (DME) Blood Glucose Test Strip See Rx Instructions .MEDSUPPLY Qty: 120 5RF Rx Instructions: As directed-fasting & 2 hr post meals (DME) blood-glucose meter Misc See Rx Instructions .MEDSUPPLY Qty: 1 0RF Rx Instructions: As directed- Test fasting and 2 hours after meals (DME) lancets Misc See Rx Instructions .MEDSUPPLY Qty: 200 5RF Rx Instructions: As directed-fasting & 2 hr post meals Referrals / Follow Up: KORY ABBOTT MD [Primary Care Provider] -
[2024-06-22] MEDS: Oxytocin 15 Units/NS 250ml 15 UNITS/250 ML IV.SOLN 83 UNITS IV (05:55)
[2024-06-22 06:35] LABS: Bedside Glucose 89 mg/dL (74-106)
--- NOTE | 2024-06-22 07:55 | NURSING ---
Epidural cath removed. Blue tip intact
[2024-06-22] MEDS: Ibuprofen 600 MG Tablet PO ×2 (09:43→19:42)
[2024-06-22] MEDS: Acetaminophen 500 MG Tablet 1000 MG PO (15:40)
[2024-06-23 00:53] VITALS: BP 112/67; PULSE 92; RESP 16; TEMP 36.4; O2SAT 98
[2024-06-23 03:33] VITALS: BP 138/56; PULSE 89; RESP 16; TEMP 37.1; O2SAT 99
--- NOTE | 2024-06-23 04:44 | NURSING ---
Home BP monitor provided to pt. pot feeder Callie Johnson provided education and reviewed BP parameters.
--- NOTE | 2024-06-27 15:25 | NURSING ---
Spoke with Lala for a f/u phone call. She states she is feeling well overall. Her bleeding is very minimal and is not having pain. Everettkelsey denies any headaches, blurred vision, or epigastric pain. Lala denies and questions regarding her discharge instructions. Lala continues to pump for her son in the NICU and denies any questions regarding the pumping or her breasts overall.
== END 2024-06-23 05:35 | disposition home or self-care (01) | DRG 560 ==
LOC: WPOUT 17:20 → WP 17:20
PROVIDERS: Admitting Provider Obstetrics & Gynecology; PCP Family Medicine; Referring Provider Obstetrics & Gynecology; Visit Provider Obstetrics & Gynecology
DX: O42.113 Preterm premature rupture of membranes, onset of labor more than 24 hours following rupture, third trimester (principal); Z37.0 Single live birth; O24.429 Gestational diabetes mellitus in childbirth, unspecified control; O99.214 Obesity complicating childbirth; O69.81X0 Labor and delivery complicated by cord around neck, without compression, not applicable or unspecified; Z87.59 Personal history of other complications of pregnancy, childbirth and the puerperium; Z3A.37 37 weeks gestation of pregnancy
CPT/HCPCS: 59025; 59050; 82565; 82570; 82962; 84156; 84450; 84460; 84550; 85025; 86780; 86850; 86900; 86901; 87081; 87653; 99221; G0378